=== PATIENT | female | born 1985 | race Caucasian/White ===

== ENCOUNTER 2016-10-10 19:27 | Emergency (ER) | payer SELFPAY ==
[~2016-10-10] VITALS: Ht 165.1 cm; Wt 76.3 kg
[2016-10-10 19:39] VITALS: BP 123/80; PULSE 96; RESP 18; TEMP 98.1; O2SAT 100
[2016-10-10] MEDS ORDERED: SODIUM CHLOR 0.9% 1000 ML INJ 1,000 ML IV SCH (20:28)
[2016-10-10] MEDS ORDERED: SODIUM CHLORIDE 0.9% FLUSH 10 ML FLUSH IV FLUSH PRN (20:30)
[2016-10-10] MEDS ORDERED: KETOROLAC TROMETHAMINE 30 MG/ML (IVP) VIAL IVP ONE (20:30)
[2016-10-10] MEDS ORDERED: ETON1IMP I-DERMAL (20:35)
--- NOTE | 2016-10-10 20:40 | PD ---
HPI Chief Complaint: Abdominal Pain Time Seen by Provider: 20:23 Travel History International Travel<30 days: No Contact w/Intl Traveler<30days: No Traveled to known affect area: No History of Present Illness HPI Patient is 30-year-old female presents emergency Department with back pain primary in the right side radiating down to her right groin cramping in nature and intermittent. She thinks that it feels a lot like labor pains. Patient states been having on and off for the past 2 days. Patient also endorses some vaginal bleeding. Patient states that she's had very irregular periods in the past secondary to a Implanon. She took 4 tests at home all were negative but she read online that the Implanon can cause false negatives. Patient is unsure as to whether or not she could be now. She does endorse some abdominal distention which is new. Denies any dysuria. PFSH Past Medical History Medical History: Denies Significant Hx Diminished Hearing: No Tetanus Vaccination: Unknown Influenza Vaccination: No ?: Unknown : 5 Para: 4 Past Surgical History Surgical History: No Previous Surgery Social History Alcohol Use: Yes (DRINKS NIGHTLY) Tobacco Use: Yes (1 PPD) Substance Use: No Allergies-Medications (Allergen,Severity, Reaction): Coded Allergies: No Known Allergies (Unverified , 10/10/16) Reported Meds & Prescriptions Reported Meds & Active Scripts Active Keflex (Cephalexin) 500 Mg Cap 500 Mg PO Q6H 7 Days Flagyl (Metronidazole) 500 Mg Tab 500 Mg PO BID 7 Days Reported Nexplanon Implant (Etonogestrel Implant) 68 Mg Imp 68 Mg I-DERMAL ONCE Review of Systems Except as stated in HPI: all other systems reviewed are Neg Physical Exam Narrative GENERAL: [Well-developed well-nourished, multiple tattoos, appears uncomfortable SKIN: Focused skin assessment warm/dry. HEAD: Atraumatic. Normocephalic. EYES: Pupils equal and round. No scleral icterus. No injection or drainage. ENT: No nasal bleeding or discharge. Mucous membranes pink and moist. NECK: Trachea midline. No JVD. CARDIOVASCULAR: Regular rate and rhythm. No murmur appreciated. RESPIRATORY: No accessory muscle use. Clear to auscultation. Breath sounds equal bilaterally. GASTROINTESTINAL: Abdomen soft, minimally tender in the superpubic area, nondistended. Hepatic and splenic margins not palpable. No CVA tenderness. GENITOURINARY: Cervix is mildly irritated and there is some minimal white thick discharge. No genital lesions seen. There is some right-sided bimanual tenderness. Exam was performed with female nurse sales research analyst present at all times. MUSCULOSKELETAL: No obvious deformities. No clubbing. No cyanosis. No edema. NEUROLOGICAL: Awake and alert. No obvious cranial nerve deficits. Motor grossly within normal limits. Normal speech. PSYCHIATRIC: Appropriate mood and affect; insight and judgment normal. Data Data Last Documented VS Vital Signs Date Time Temp Pulse Resp B/P Pulse Ox O2 Delivery O2 Flow Rate FiO2 10/11/16 01:00 76 126/71 98 10/10/16 22:00 20 10/10/16 21:03 Room Air 10/10/16 19:39 98.1 Orders Urinalysis - C+S If Indicated (10/10/16 20:06) Ed Urine Pregnancytest Poc (10/10/16 20:06) Ed Poc Ultrasound (10/10/16 ) Beta Hcg (Quant/Titer) (10/10/16 20:28) Complete Blood Count With Diff (10/10/16 20:28) Comprehensive Metabolic Panel (10/10/16 20:28) Lipase (10/10/16 20:28) Iv Access Insert/Monitor (10/10/16 20:28) Ecg Monitoring (10/10/16 20:28) Oximetry (10/10/16 20:28) Sodium Chlor 0.9% 1000 Ml Inj (Ns 1000 M (10/10/16 20:28) Sodium Chloride 0.9% Flush (Ns Flush) (10/10/16 20:30) Ketorolac Inj (Toradol Inj) (10/10/16 20:30) Wet Prep Profile (10/10/16 20:28) Gc And Chlamydia Pcr (10/10/16 20:28) Ct Abd/Pel W Iv Contrast(Rout) (10/10/16 ) Ondansetron Inj (Zofran Inj) (10/10/16 21:00) Urine Culture (10/10/16 20:14) Us Pelvis Comp W Doppler (10/10/16 ) Oxycodone-Acetamin 5-325 Mg (Percocet (10/10/16 22:45) Iohexol 350 Inj (Omnipaque 350 Inj) (10/10/16 22:58) Metronidazole (Flagyl) (10/10/16 23:30) Cephalexin (Keflex) (10/11/16 00:30) Labs Laboratory Tests Test 10/10/16 10/10/16 10/10/16 20:14 20:50 21:00 Urine Color YELLOW Urine Turbidity HAZY Urine pH 6.0 Urine Specific [place] 1.034 Urine Protein TRACE mg/dL Urine Glucose (UA) NEG mg/dL Urine Ketones TRACE mg/dL Urine Occult Blood NEG Urine Nitrite NEG Urine Bilirubin NEG Urine Leukocyte Esterase NEG Urine RBC 0-3 /hpf Urine WBC 9-14 /hpf Urine Squamous Epithelial > 8 /hpf Cells Urine Bacteria FEW /hpf Urine Mucus FEW /lpf Microscopic Urinalysis Comment CULTURE INDICATED Clue Cells (Wet Prep) PRESENT Vaginal Trichomonas (Wet Prep) NONE SEEN Vaginal Yeast (Wet Prep) NONE SEEN Chlamydia trachomatis DNA NOT DETECTED (PCR) Neisseria gonorrhoeae DNA NOT DETECTED (PCR) White Blood Count 10.6 TH/MM3 Red Blood Count 4.84 MIL/MM3 Hemoglobin 13.2 GM/DL Hematocrit 39.3 % Mean Corpuscular Volume 81.1 FL Mean Corpuscular Hemoglobin 27.4 PG Mean Corpuscular Hemoglobin 33.7 % Concent Red Cell Distribution Width 12.1 % Platelet Count 198 TH/MM3 Mean Platelet Volume 9.3 FL Neutrophils (%) (Auto) 72.1 % Lymphocytes (%) (Auto) 20.3 % Monocytes (%) (Auto) 5.3 % Eosinophils (%) (Auto) 1.3 % Basophils (%) (Auto) 1.0 % Neutrophils # (Auto) 7.7 TH/MM3 Lymphocytes # (Auto) 2.1 TH/MM3 Monocytes # (Auto) 0.6 TH/MM3 Eosinophils # (Auto) 0.1 TH/MM3 Basophils # (Auto) 0.1 TH/MM3 CBC Comment DIFF FINAL Differential Comment Sodium Level 139 MEQ/L Potassium Level 3.8 MEQ/L Chloride Level 104 MEQ/L Carbon Dioxide Level 26.1 MEQ/L Anion Gap 9 MEQ/L Blood Urea Nitrogen 13 MG/DL Creatinine 1.00 MG/DL Estimat Glomerular Filtration 66 ML/MIN Rate Random Glucose 104 MG/DL Calcium Level 8.9 MG/DL Total Bilirubin 0.4 MG/DL Aspartate Amino Transf 65 U/L (AST/SGOT) Alanine Aminotransferase 70 U/L (ALT/SGPT) Alkaline Phosphatase 81 U/L Total Protein 7.9 GM/DL Albumin 3.8 GM/DL Lipase 132 U/L Human Chorionic Gonadotropin, LESS THAN 1 Quant MIU/ML MDM Medical Decision Making Medical Screen Exam Complete: Yes Emergency Medical Condition: Yes Differential Diagnosis Appendicitis, , ectopic , ovarian torsion, constipation, kidney stone. Narrative Course Patient was roomed emergency primary, given Toradol IV which made her feel quite better, as Toradol began to wear off patient stated her pain came back. She was given Percocet by mouth. Initial exam was significant for right sided bimanual tenderness which was moderate. Patient did have an ultrasound transvaginally which excluded torsion and a CAT scan which showed no acute abnormality: Last 24 hours Impressions Pelvis Ultrasound 10/10/16 0000 Signed Impressions: Service Date/Time: Monday, October 10, 2016 21:29 - CONCLUSION: Normal pelvic sonogram. Carlton Mckeon MD Abdomen/Pelvis CT 10/10/16 0000 Signed Impressions: Service Date/Time: Monday, October 10, 2016 21:50 - CONCLUSION: 1. Moderate hepatic steatosis. 2. No acute inflammatory process. 3. Normal appendix. Carlton Mckeon MD I discussed the lab results with patient she did show some transaminitis and recommended that she follows up with a primary care physician. She is feeling better and she does have new cells on her wet prep. Discussed symptomatic management of BV and will add Flagyl. Discussed disulfiram reaction. She is stable for discharge at this time. Recommend follow-up with an GAUGE CONTROLLER as well as primary care physician. Procedures Procedure Narrative Bedside ultrasound transabdominal for shows no intrauterine , no pelvic free fluid. This was performed on patient arrival to rule out . Diagnosis Primary Impression: Bacterial vaginosis Referrals: [facility] Additional Instructions: Follow-up with your primary care physician or [facility]. Med/Other Pt SpecificInfo: Prescription(s) given Scripts Cephalexin (Keflex)500 Mg [id number] Mg PO Q6H 7 Days Ref 0 Prov:Shankar Leslie MD 10/11/16 Metronidazole (Flagyl)500 Mg [id number] Mg PO BID 7 Days Ref 0 Prov:Shankar Leslie MD 10/10/16 Disposition: 01 DISCHARGE HOME Condition: Stable Shankar Leslie MD October 10, 2016 20:40
[2016-10-10] MEDS ORDERED: ONDANSETRON HCL 4 MG/2 ML VIAL IV PUSH ONE (21:00)
[2016-10-10 21:03] VITALS: BP 137/82; PULSE 85; RESP 20; O2SAT 99
[2016-10-10 21:20] VITALS: BP 148/60; PULSE 88; RESP 20; O2SAT 99
[2016-10-10 21:34] LABS: CHLORIDE 104 MEQ/L (98-107); POTASSIUM 3.8 MEQ/L (3.5-5.1); SODIUM (NA) 139 MEQ/L (136-145)
[2016-10-10 21:35] LABS: BLOOD, URINE NEG (NEG); GLUCOSE,URINE NEG (NEG); KETONE, URINE TRACE mg/dL (NEG); NITRITE,URINE NEG (NEG)
[2016-10-10 21:35] LABS: AUTOMATED NEUTROPHIL # 7.7 TH/MM3 (1.8-7.7); BASOPHIL # 0.1 TH/MM3 (0-0.2); EOSINOPHIL # 0.1 TH/MM3 (0-0.4); EOSINOPHIL % 1.3 % (0.0-4.0); HEMATOCRIT 39.3 % (35.0-46.0); HEMO FLAGS DIFF FINAL; LYMPH % 20.3 % (9.0-44.0); LYMPHOCYTE # 2.1 TH/MM3 (1.0-4.8); MEAN CELL VOLUME 81.1 FL (80.0-100.0); MEAN CORPUSCULAR HEMOGLOBIN 27.4 PG (27.0-34.0); MEAN CORPUSCULAR HGB CONC 33.7 % (32.0-36.0); MONO % 5.3 % (0.0-8.0); NEUT % 72.1 % (16.0-70.0); PLATELET COUNT 198 TH/MM3 (150-450); RED BLOOD COUNT 4.84 MIL/MM3 (4.00-5.30); RED CELL DISTRIBUTION WIDTH 12.1 % (11.6-17.2); WHITE BLOOD COUNT 10.6 TH/MM3 (4.0-11.0)
[2016-10-10 21:38] LABS: ANION GAP 9 MEQ/L (5-15); BICARBONATE 26.1 MEQ/L (21.0-32.0); BLOOD UREA NITROGEN 13 MG/DL (7-18)
[2016-10-10 21:40] LABS: URINE COLOR YELLOW (YELLW/STRAW)
[2016-10-10 21:41] LABS: ALT (GPT) 70 U/L (10-53); AST (GOT) 65 U/L (15-37); GLOMERULAR FILTRATION RATE 66 ML/MIN (>89)
[2016-10-10 21:42] LABS: MUCUS URINE FEW /lpf (OCC); RBC, URINE 0-3 /hpf (0-3); SQUAMOUS EPITHELIAL CELL URINE > 8 /hpf (0-5)
[2016-10-10 21:42] LABS: TOTAL BILIRUBIN ADULT 0.4 MG/DL (0.2-1.0)
[2016-10-10 21:43] LABS: ALKALINE PHOSPHATASE 81 U/L (45-117)
[2016-10-10 21:43] LABS: BACTERIA, URINE FEW /hpf; COMMENT (UR) CULTURE INDICATED; CULTURE IF INDICATED CULTURE INDICATED
[2016-10-10 21:46] LABS: BETA HCG QUANT LESS THAN 1 MIU/ML (0-5)
[2016-10-10 22:00] VITALS: BP 142/75; PULSE 86; RESP 20; O2SAT 98
--- NOTE | 2016-10-10 22:32 | RADHPO ---
EXAM DATE/TIME: 10/10/2016 21:50 [facility] COMPARISON: No previous studies available for comparison. INDICATIONS : Right lower quadrant pain. Distention. IV CONTRAST: 100 cc Omnipaque 350 (iohexol) IV ORAL CONTRAST: No oral contrast ingested. RADIATION DOSE: 11.97 CTDIvol (mGy) MEDICAL HISTORY : None SURGICAL HISTORY : None. ENCOUNTER: Initial ACUITY: 2 days PAIN SCALE: 7/10 LOCATION: Right lower quadrant TECHNIQUE: Volumetric scanning of the abdomen and pelvis was performed. Using automated exposure control and ad justment of the mA and/or kV according to patient size, radiation dose was kept as low as reasonably achievable to obtain optimal diagnostic quality images. FINDINGS: LOWER LUNGS: The visualized lower lungs are clear. LIVER: Decreased attenuation without lesion. There is no dilation of the biliary tree. No calcified gallst ones. SPLEEN: Normal size without lesion. PANCREAS: Within normal limits. KIDNEYS: Normal in size and shape. There is no mass, stone or hydronephrosis. ADRENAL GLANDS: Within normal limits. VASCULAR: There is no aortic aneurysm. BOWEL/MESENTERY: The stomach, small bowel, and colon demonstrate no acute abnormality. There is no free intraperitone al air or fluid. ABDOMINAL WALL: Within normal limits. RETROPERITONEUM: There is no lymphadenopathy. BLADDER: No wall thickening or mass. REPRODUCTIVE: Within normal limits. INGUINAL: There is no lymphadenopathy or hernia. MUSCULOSKELETAL: Within normal limits for patient age. CONCLUSION: 1. Moderate hepatic steatosis. 2. No acute inflammatory process. 3. Normal appendix. Carlton Mckeon MD on October 10, 2016 at 22:28 Board Certified Radiologist. This report was verified electronically.
--- NOTE | 2016-10-10 22:41 | RADHPO ---
EXAM DATE/TIME: 10/10/2016 21:29 [facility] COMPARISON: No previous studies available for comparison. INDICATIONS : Pelvic pain. MEDICAL HISTORY : Pelvic pain. SURGICAL HISTORY : None. ENCOUNTER: Initial ACUITY: 1 day PAIN SCORE: 3/10 LOCATION: Bilateral pelvis MEASUREMENTS: UTERUS: 6.2 x 3.2 x 4.5 cm ENDOMETRIAL STRIPE: 8 mm RIGHT OVARY: 3.4 x 1.7 x 2.0 cm LEFT OVARY: 3.0x 1.4 x 3.1 cm FINDINGS: UTERUS: The myometrium has homogeneous echotexture without mass. RIGHT OVARY: Ovary contains no mass or significant cystic lesion. Normal flow. LEFT OVARY: Ovary contains no mass or significant cystic lesion. Normal flow. MISCELLANEOUS: No free fluid. CONCLUSION: Normal pelvic sonogram. Carlton Mckeon MD on October 10, 2016 at 22:38 Board Certified Radiologist. This report was verified electronically.
[2016-10-10] MEDS ORDERED: oxyCODONE/ACETAMINOPHEN 5 MG/325 MG TAB PO ONE (22:45)
[2016-10-10] MEDS ORDERED: IOHEXOL 350 MG/ML 10 ML VIAL (for RAD DIAG) IV ONE (22:58)
[2016-10-10] MEDS ORDERED: METR-1 PO (23:25)
[2016-10-10] MEDS ORDERED: metroNIDAZOLE 500 MG TAB PO ONE (23:30)
[2016-10-11] MEDS ORDERED: CEPH-460 PO (00:22)
[2016-10-11] MEDS ORDERED: CEPHALEXIN MONOHYDRATE 500 MG CAP PO ONE (00:30)
[2016-10-11 01:00] VITALS: BP 126/71
[2016-10-11 01:20] LABS: CHLAMYDIA PCR NOT DETECTED (NOT DETECT); NEISSERIA PCR NOT DETECTED (NOT DETECT)
== END 2016-10-11 01:00 | disposition home or self-care (01) ==
LOC: PHED 19:27
DX: R10.31 Right lower quadrant pain (principal); N76.0 Acute vaginitis; F17.210 Nicotine dependence, cigarettes, uncomplicated
CPT/HCPCS: 74177; 76856; 80053; 81001; 83690; 84702; 84703; 85025; 87086; 87210; 87491; 87591; 93975; 96361; 96374; 96375; 99284; J1885; J2405; J7030; Q9967

== ENCOUNTER 2017-03-01 03:45 | Emergency (ER) | payer OTHER ==
[~2017-03-01] VITALS: Ht 165.1 cm; Wt 75.0 kg
[~2017-03-01 03:45] MED LIST: CEPH-460 PO; ETON1IMP I-DERMAL; METR-1 PO
[2017-03-01 03:57] VITALS: BP 136/82; PULSE 144; RESP 19; TEMP 98.4; O2SAT 97
--- NOTE | 2017-03-01 04:30 | PD ---
HPI Chief Complaint: Psychiatric Symptoms Time Seen by Provider: 04:09 Travel History International Travel<30 days: No Contact w/Intl Traveler<30days: No Traveled to known affect area: No History of Present Illness HPI 31-year-old white female presents to emergency department under Dee act by PD. According to the patient she had reported her significant other to his boss at work that he is a substance abuser as well as stealing from the company. She states that in retaliation she had gotten her a corrected. He had reported that she was going to hurt herself. According to the patient she had cut her left wrist, right thigh and abdomen when she was climbing over a fence in attempts to evade police earlier this evening. Patient denies any self -inflicted wounds. She does not had a tetanus shot over 5 years. She does admit to drinking earlier this evening. She does smoke pot on occasion. She denies any other drugs. She denies any medical complaints. PFS Past Medical History Medical History: Denies Significant Hx Diminished Hearing: No Tetanus Vaccination: > 5 Years Influenza Vaccination: No ?: Not : 5 Para: 4 Past Surgical History Surgical History: No Previous Surgery Social History Alcohol Use: Yes (DRINKS NIGHTLY) Tobacco Use: Yes (1 PPD) Substance Use: Yes (MARIJUANA) Allergies-Medications (Allergen,Severity, Reaction): Coded Allergies: No Known Allergies (Unverified , 10/10/16) Reported Meds & Prescriptions Reported Meds & Active Scripts Active Reported Nexplanon Implant (Etonogestrel Implant) 68 Mg Imp 68 Mg I-DERMAL ONCE Review of Systems Except as stated in HPI: all other systems reviewed are Neg Physical Exam Narrative GENERAL: Well-nourished, well-developed patient. SKIN: Warm and dry. Patient has abrasions to the medial aspect of the right thigh as well as abdomen with bruising. These are consistent with her story of climbing a fence and getting caught on the metal wiring. There is also a lesion on the right foot. The patient's lacerations of the left wrist are inconsistent with her story of cuts from climbing a fence. Patient has 2 linear lacerations along the volar wrist. Each laceration measures approximately 4 cm. These go into the subcutaneous tissues. These are different than what appears on the patient's abdomen and legs HEAD: Normocephalic and atraumatic. EYES: No scleral icterus. No injection or drainage. ENT: No nasal drainage noted. Mucous membranes pink. Airway patent. NECK: Supple, trachea midline. Moves head freely without obvious discomfort. CARDIOVASCULAR: Regular rate and rhythm without murmurs, gallops, or rubs. RESPIRATORY: Breath sounds equal bilaterally. No accessory muscle use. GASTROINTESTINAL: Abdomen soft, non-tender, nondistended. EXTREMITIES: No cyanosis or edema. BACK: Nontender without obvious deformity. No CVA tenderness. NEURO: Patient is alert and oriented. no sensorimotor deficits. Nonfocal. Normal speech. PSYCH: No delusions. No auditory or visual hallucinations. Data Data Last Documented VS Vital Signs Date Time Temp Pulse Resp B/P (MAP) Pulse Ox O2 Delivery O2 Flow Rate FiO2 03/01/17 03:57 98.4 144 19 136/82 (100) 97 Orders Orders Complete Blood Count With Diff (03/01/17 04:17) Comprehensive Metabolic Panel (03/01/17 04:17) Ed Urine Pregnancytest Poc (03/01/17 04:17) Psych Screen (03/01/17 04:17) Drug Screen, Random Urine (03/01/17 04:17) Alcohol (Ethanol) (03/01/17 04:17) Tetanus/Diphtheria Tox Adult (Tetanus/Di (03/01/17 04:45) Labs Laboratory Tests Test 03/01/17 04:00 White Blood Count 9.2 TH/MM3 Red Blood Count 4.83 MIL/MM3 Hemoglobin 13.4 GM/DL Hematocrit 41.1 % Mean Corpuscular Volume 85.0 FL Mean Corpuscular Hemoglobin 27.8 PG Mean Corpuscular Hemoglobin Concent 32.6 % Red Cell Distribution Width 13.5 % Platelet Count 248 TH/MM3 Mean Platelet Volume 8.7 FL Neutrophils (%) (Auto) 67.1 % Lymphocytes (%) (Auto) 24.7 % Monocytes (%) (Auto) 6.9 % Eosinophils (%) (Auto) 0.9 % Basophils (%) (Auto) 0.4 % Neutrophils # (Auto) 6.1 TH/MM3 Lymphocytes # (Auto) 2.3 TH/MM3 Monocytes # (Auto) 0.6 TH/MM3 Eosinophils # (Auto) 0.1 TH/MM3 Basophils # (Auto) 0.0 TH/MM3 CBC Comment DIFF FINAL Differential Comment Blood Urea Nitrogen 13 MG/DL Creatinine 0.83 MG/DL Random Glucose 104 MG/DL Total Protein 8.7 GM/DL Albumin 4.3 GM/DL Calcium Level 8.8 MG/DL Alkaline Phosphatase 79 U/L Aspartate Amino Transf (AST/SGOT) 84 U/L Alanine Aminotransferase (ALT/SGPT) 154 U/L Total Bilirubin 0.3 MG/DL Sodium Level 140 MEQ/L Potassium Level 3.9 MEQ/L Chloride Level 106 MEQ/L Carbon Dioxide Level 22.2 MEQ/L Anion Gap 12 MEQ/L Estimat Glomerular Filtration Rate 81 ML/MIN Urine Opiates Screen NEG Urine Barbiturates Screen NEG Urine Amphetamines Screen NEG Urine Benzodiazepines Screen NEG Urine Cocaine Screen NEG Urine Cannabinoids Screen POS Ethyl Alcohol Level 129 MG/DL MDM Medical Decision Making Medical Screen Exam Complete: Yes Emergency Medical Condition: Yes Medical Record Reviewed: Yes Interpretation(s) Laboratory Tests Test 03/01/17 04:00 White Blood Count 9.2 TH/MM3 Red Blood Count 4.83 MIL/MM3 Hemoglobin 13.4 GM/DL Hematocrit 41.1 % Mean Corpuscular Volume 85.0 FL Mean Corpuscular Hemoglobin 27.8 PG Mean Corpuscular Hemoglobin Concent 32.6 % Red Cell Distribution Width 13.5 % Platelet Count 248 TH/MM3 Mean Platelet Volume 8.7 FL Neutrophils (%) (Auto) 67.1 % Lymphocytes (%) (Auto) 24.7 % Monocytes (%) (Auto) 6.9 % Eosinophils (%) (Auto) 0.9 % Basophils (%) (Auto) 0.4 % Neutrophils # (Auto) 6.1 TH/MM3 Lymphocytes # (Auto) 2.3 TH/MM3 Monocytes # (Auto) 0.6 TH/MM3 Eosinophils # (Auto) 0.1 TH/MM3 Basophils # (Auto) 0.0 TH/MM3 CBC Comment DIFF FINAL Differential Comment Blood Urea Nitrogen 13 MG/DL Creatinine 0.83 MG/DL Random Glucose 104 MG/DL Total Protein 8.7 GM/DL Albumin 4.3 GM/DL Calcium Level 8.8 MG/DL Alkaline Phosphatase 79 U/L Aspartate Amino Transf (AST/SGOT) 84 U/L Alanine Aminotransferase (ALT/SGPT) 154 U/L Total Bilirubin 0.3 MG/DL Sodium Level 140 MEQ/L Potassium Level 3.9 MEQ/L Chloride Level 106 MEQ/L Carbon Dioxide Level 22.2 MEQ/L Anion Gap 12 MEQ/L Estimat Glomerular Filtration Rate 81 ML/MIN Urine Opiates Screen NEG Urine Barbiturates Screen NEG Urine Amphetamines Screen NEG Urine Benzodiazepines Screen NEG Urine Cocaine Screen NEG Urine Cannabinoids Screen POS Ethyl Alcohol Level 129 MG/DL Differential Diagnosis MDM: High Differential diagnoses: Schizophrenia, schizoaffective disorder, bipolar, anxiety, depression, adjustment reaction, mood disorder NOS, ODD, depressive disorder NOS, dementia, dementia with agitation, psychosis NOS, substance induced mood disorder, infection,electrolyte abnormality, malingering. Narrative Course Patient's tetanus status updated. Patient's wounds are cleansed and dressed by the nursing staff. Mental health screening discussed with the patient. Psychiatric screen ordered. This is medical clearance for psychiatric admission, self-mutilation Diagnosis Primary Impression: Medical clearance for psychiatric admission Additional Impression: Self-mutilation Condition: Stable Trevor Miller Mar 01, 2017 04:30
[2017-03-01] MEDS ORDERED: TETANUS/DIPHTHERIA TOXOID ADULT 0.5 ML VIAL IM ONE (04:45)
[2017-03-01 04:56] LABS: AUTOMATED NEUTROPHIL # 6.1 TH/MM3 (1.8-7.7); BASOPHIL % 0.4 % (0.0-2.0); EOSINOPHIL # 0.1 TH/MM3 (0-0.4); EOSINOPHIL % 0.9 % (0.0-4.0); HEMATOCRIT 41.1 % (35.0-46.0); HEMO FLAGS DIFF FINAL; LYMPH % 24.7 % (9.0-44.0); LYMPHOCYTE # 2.3 TH/MM3 (1.0-4.8); MEAN CORPUSCULAR HEMOGLOBIN 27.8 PG (27.0-34.0); MEAN CORPUSCULAR HGB CONC 32.6 % (32.0-36.0); MONO % 6.9 % (0.0-8.0); NEUT % 67.1 % (16.0-70.0); PLATELET COUNT 248 TH/MM3 (150-450); RED BLOOD COUNT 4.83 MIL/MM3 (4.00-5.30); RED CELL DISTRIBUTION WIDTH 13.5 % (11.6-17.2); WHITE BLOOD COUNT 9.2 TH/MM3 (4.0-11.0)
[2017-03-01 05:04] LABS: ALT (GPT) 154 U/L (10-53); ANION GAP 12 MEQ/L (5-15); AST (GOT) 84 U/L (15-37); BICARBONATE 22.2 MEQ/L (21.0-32.0); BLOOD UREA NITROGEN 13 MG/DL (7-18); CHLORIDE 106 MEQ/L (98-107); GLOMERULAR FILTRATION RATE 81 ML/MIN (>89); POTASSIUM 3.9 MEQ/L (3.5-5.1); SODIUM (NA) 140 MEQ/L (136-145)
[2017-03-01 05:05] LABS: ALKALINE PHOSPHATASE 79 U/L (45-117); TOTAL BILIRUBIN ADULT 0.3 MG/DL (0.2-1.0)
[2017-03-01 05:06] LABS: ALCOHOL 129 MG/DL (0-5)
--- NOTE | 2017-03-01 10:57 | PD ---
Physical Exam Time Seen by Provider: 10:56 Narrative Please refer to previous providers documentation for details surrounding the patient's current visit. Data Data Last Documented VS Vital Signs Date Time Temp Pulse Resp B/P (MAP) Pulse Ox O2 Delivery O2 Flow Rate FiO2 03/01/17 03:57 98.4 144 19 136/82 (100) 97 Orders Orders Complete Blood Count With Diff (03/01/17 04:17) Comprehensive Metabolic Panel (03/01/17 04:17) Ed Urine Pregnancytest Poc (03/01/17 04:17) Psych Screen (03/01/17 04:17) Drug Screen, Random Urine (03/01/17 04:17) Alcohol (Ethanol) (03/01/17 04:17) Tetanus/Diphtheria Tox Adult (Tetanus/Di (03/01/17 04:45) Diet Regular Basic (03/01/17 Breakfast) Labs Laboratory Tests Test 03/01/17 04:00 White Blood Count 9.2 TH/MM3 Red Blood Count 4.83 MIL/MM3 Hemoglobin 13.4 GM/DL Hematocrit 41.1 % Mean Corpuscular Volume 85.0 FL Mean Corpuscular Hemoglobin 27.8 PG Mean Corpuscular Hemoglobin Concent 32.6 % Red Cell Distribution Width 13.5 % Platelet Count 248 TH/MM3 Mean Platelet Volume 8.7 FL Neutrophils (%) (Auto) 67.1 % Lymphocytes (%) (Auto) 24.7 % Monocytes (%) (Auto) 6.9 % Eosinophils (%) (Auto) 0.9 % Basophils (%) (Auto) 0.4 % Neutrophils # (Auto) 6.1 TH/MM3 Lymphocytes # (Auto) 2.3 TH/MM3 Monocytes # (Auto) 0.6 TH/MM3 Eosinophils # (Auto) 0.1 TH/MM3 Basophils # (Auto) 0.0 TH/MM3 CBC Comment DIFF FINAL Differential Comment Blood Urea Nitrogen 13 MG/DL Creatinine 0.83 MG/DL Random Glucose 104 MG/DL Total Protein 8.7 GM/DL Albumin 4.3 GM/DL Calcium Level 8.8 MG/DL Alkaline Phosphatase 79 U/L Aspartate Amino Transf (AST/SGOT) 84 U/L Alanine Aminotransferase (ALT/SGPT) 154 U/L Total Bilirubin 0.3 MG/DL Sodium Level 140 MEQ/L Potassium Level 3.9 MEQ/L Chloride Level 106 MEQ/L Carbon Dioxide Level 22.2 MEQ/L Anion Gap 12 MEQ/L Estimat Glomerular Filtration Rate 81 ML/MIN Urine Opiates Screen NEG Urine Barbiturates Screen NEG Urine Amphetamines Screen NEG Urine Benzodiazepines Screen NEG Urine Cocaine Screen NEG Urine Cannabinoids Screen POS Ethyl Alcohol Level 129 MG/DL [facility] Medical Record Reviewed: Yes Supervised Visit with RICH: No Narrative Course Patient presented under Dee act. She was medically cleared, evaluate by psychiatry, and Dee act has been lifted. Patient has no further acute medical needs. She'll be discharged at this time. Diagnosis Primary Impression: Medical clearance for psychiatric admission Additional Impression: Self-mutilation Referrals: [facility] (Out patient) Patient Instructions: General Instructions, Medical Clearance for Psychiatric Care (ED) Departure Forms: Tests/Procedures Med/Other Pt SpecificInfo: No Change to Meds Disposition: 01 DISCHARGE HOME Condition: Stable Radha Lujan Mar 01, 2017 10:57
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
== END 2017-03-01 11:05 | disposition home or self-care (01) ==
LOC: NEPD 03:45
DX: F10.10 Alcohol abuse, uncomplicated (principal); F17.200 Nicotine dependence, unspecified, uncomplicated; Z23 Encounter for immunization
CPT/HCPCS: 80053; 80307; 84703; 85025; 90471; 90714